=== PATIENT | female | born 1950 | race Caucasian/White ===

== ENCOUNTER 2017-10-12 07:04 | Inpatient (IN) ==
[2017-10-07 13:15] LABS: Basophils # (Auto) 0 K/mcL (0.0-0.3); Basophils % (Auto) 0.4 % (0.0-2.0); Eosinophils # (Auto) 0.2 K/mcL (0.0-0.7); Eosinophils % (Auto) 2.3 % (0.0-7.0); Granulocytes % (Auto) 57.3 % (38.0-78.0); Lymphocytes # (Auto) 2.4 K/mcL (1.5-4.8); Lymphocytes % (Auto) 33.6 % (15.5-49.0); Mean Cell Volume 95.6 fL (80.0-100.0); Mean Corpuscular HGB Conc 32.5 g/dL (31.0-36.0); Mean Corpuscular Hemoglobin 31.1 pg (26.0-34.0); Monocytes # (Auto) 0.5 K/mcL (0.1-0.9); Monocytes % (Auto) 6.4 % (1.0-12.0); Platelet Count 285 K/mcL (140-440); RBC 4.64 M/mcL (4.00-5.20); Red Cell Distribution Width 14.5 % (11.5-14.5)
[2017-10-07 13:31] LABS: Blood Urea Nitrogen 19 mg/dl (8-23)
[~2017-10-12 07:04] MED LIST: ceFAZolin 1 GM VIAL IV SCH
[2017-10-12] MEDS ORDERED: IPRATROPIUM/ALBUTEROL 3 ML AMPUL.NEB NEB ONE ×2 (08:39→10:47)
[2017-10-12] MEDS ORDERED: ONDANSETRON 4 MG/2 ML VIAL IV ONE (09:02)
[2017-10-12] MEDS ORDERED: KETAMINE 100 MG/ML ML IV ONE (09:02)
[2017-10-12] MEDS ORDERED: LIDOCAINE HCL/PF 100 MG/5 ML SYRINGE IV ONE (09:02)
[2017-10-12] MEDS ORDERED: GLYCOPYRROLATE 0.2 MG/ML VIAL IV ONE (09:02)
[2017-10-12] MEDS ORDERED: DEXAMETHASONE 10 MG/ML VIAL IV ONE (09:02)
[2017-10-12] MEDS ORDERED: MIDAZOLAM 2 MG/2 ML VIAL IV ONE (09:02)
[2017-10-12] MEDS ORDERED: PHENYLEPHRINE 10 MG/ML VIAL IV ONE (09:02)
[2017-10-12] MEDS ORDERED: TRANEXAMIC ACID 1,000 MG/10 ML VIAL IV ONE (09:02)
[2017-10-12] MEDS ORDERED: SUCCINYLCHOLINE 20 MG/ML ML IV ONE (09:02)
[2017-10-12] MEDS ORDERED: PROPOFOL 200 MG/20 ML VIAL IV ONE (09:02)
[2017-10-12] MEDS ORDERED: HYDROmorphone 2 MG/ML VIAL IV ONE (09:02)
[2017-10-12] MEDS ORDERED: ROPIVACAINE HCL/PF 20 ML VIAL IJ ONE (09:02)
[2017-10-12] MEDS ORDERED: METHOCARBAMOL 1,000 MG/10 ML VIAL IV PRN (09:43)
[2017-10-12] MEDS ORDERED: ONDANSETRON 4 MG/2 ML VIAL IV PRN ×2 (09:43→12:35)
[2017-10-12] MEDS ORDERED: LACTATED RINGERS 250 ML IV PRN (09:43)
[2017-10-12] MEDS ORDERED: fentaNYL 100 MCG/2 ML VIAL IV PRN (09:43)
[2017-10-12] MEDS ORDERED: ACETAMINOPHEN 900 MG/90 ML BOTTLE IV ONE (09:43)
[2017-10-12] MEDS ORDERED: NALOXONE HCL 0.4 MG/ML VIAL IV PRN (09:43)
[2017-10-12] MEDS ORDERED: FLUMAZENIL 0.1 MG/ML ML IV PRN (09:43)
[2017-10-12] MEDS ORDERED: IPRATROPIUM/ALBUTEROL 3 ML AMPUL.NEB NEB PRN (09:43)
[2017-10-12] MEDS ORDERED: BENZOCAINE/MENTHOL 1 LOZENGE PO PRN (09:43)
[2017-10-12] MEDS ORDERED: MEPERIDINE 25 MG/ML SYRINGE IV PRN (09:43)
[2017-10-12] MEDS ORDERED: LACTATED RINGERS 1,000 ML IV SCH (09:45)
--- NOTE | 2017-10-12 10:03 | Brief Operative Note ---
Date of procedure: 10/12/17 Pre-op diagnosis: Left shoulder bicep tear and impingment and ac joint djd Post-op diagnosis: same Procedure: left shoulder scope extensive debridement and sad and dce bicep tenodesis Grafts/Implants: Yes Anesthesia: GETA Complications Description: 10/12/17 10:03 none Surgeon: Terry Mccain Miller Apprentice: Richy Olivo Estimated blood loss (cc): 20 Specimens Removed/Pathology: none sent Condition: stable Disposition: PACU
--- NOTE | 2017-10-12 10:33 | Operative Note ---
DATE OF OPERATION: 10/12/2017 PREOPERATIVE DIAGNOSES: Left shoulder impingement, acromioclavicular joint arthrosis and biceps tendinopathy. POSTOPERATIVE DIAGNOSES: Left shoulder impingement, acromioclavicular joint arthrosis and biceps tendinopathy. PROCEDURE: Left shoulder diagnostic arthroscopy with extensive debridement, arthroscopic subacromial decompression, and arthroscopic distal clavicle excision and an open biceps tenodesis. SURGEON: Terry Mccain MD TRACTOR TRAILER MECHANIC: Richy Olivo PA-C ANESTHESIA: General LMA anesthesia. COMPLICATIONS: None. IMPLANTS PLACED: Arthrex Endobutton, biceps tenodesis anchor. DESCRIPTION OF PROCEDURE: The patient was brought to the operating room and put to sleep with general LMA anesthesia. Once asleep, the patient had left shoulder sterilely prepped and draped in the usual sterile fashion. A timeout was performed confirming the operative site. Tranexamic acid and antibiotics were given. The patient then had anterior and posterior portals made. We then inspected all contents of the shoulder which did show some adhesive capsulitis, a labral tear and SLAP lesion. At this point, the rotator cuff was inspected. The subscap, supraspinatus, infraspinatus, and teres minor were all evaluated. This showed to be intact. Inferior glenohumeral ligament and posterior glenohumeral ligament, though there was some general inflammation of the capsule, were intact. After extensive debridement of the labrum and the SLAP lesion we released the biceps tendon with an Acufex upturned biter. Shaver was inserted to remove these loose fragments. I then placed the camera in the subacromial space and outflow laterally. An anterior cannula was then created. With this I did place the scope in the subacromial space, removed the bursal tissue, used the vapor. I then used the bur to remove a small portion of the anterior acromion. Once done, I then exposed the distal clavicle by changing portals. The vapor was inserted and I used the bur to remove 10 mm of distal clavicle, making sure there was no bone in the superior capsule which was performed. The vapor was inserted to control bleeding at the end of the bone. We then cleaned the wound and closed the portals with 4-0 nylon. We then made a 2 inch incision anterior inferiorly. I exposed the deltopectoral interval, placed a Gill retractor and identified the conjoined tendon, which was retracted medially with a blue handled retractor. I identified the bicep tendon, which was harvested and made into an anchovy. We used Arthrex biceps tenodesis anchor. We then drilled a hole into the bone and this anchor was placed after preparing the bone, making it a bleeding surface. We irrigated thoroughly and then tied into place the biceps tendon, removing remnants or excess biceps tendon. We irrigated thoroughly, closed this with 2-0 Vicryl and 3-0 Monocryl. Once done, I then irrigated thoroughly and placed a regular sling and a sterile bandage. The patient tolerated this well. There was no complication. RBH:felicia Job ID: [id number] Doc ID: [id number] Terry Mccain MD
[2017-10-12] MEDS ORDERED: ALBUTEROL SULFATE 2.5 MG/3 ML NEBULIZER NEB PRN (10:49)
[2017-10-12] MEDS ORDERED: FUROSEMIDE 20 MG/2 ML VIAL IV ONE (11:54)
--- NOTE | 2017-10-12 12:15 | XRay Report ---
CLINICAL INFORMATION: Shortness of breath post surgery COMPARISON: None. FINDINGS: Heart size, mediastinum and pulmonary vessels are unremarkable. There is moderate interstitial disease throughout both lungs with more severe involvement of the right mid and lower lung. No effusions. Lung volumes are elevated suggesting air trapping IMPRESSION: Large mixed interstitial/alveolar infiltrate in the right mid/lower lung with moderate interstitial disease throughout both lungs. In the acute setting, consider aspiration, ARDS and infection Interpreted and Authenticated by: Santi Umaña 10/12/17
[2017-10-12] MEDS ORDERED: BISACODYL 10 MG SUPP.RECT PR PRN (12:35)
[2017-10-12] MEDS ORDERED: TRANEXAMIC ACID 1,000 MG/10 ML VIAL IV SCH (12:35)
[2017-10-12] MEDS ORDERED: MAGNESIUM HYDROXIDE 30 ML ORAL.SUSP PO PRN (12:35)
[2017-10-12] MEDS ORDERED: POLYETHYLENE GLYCOL 3350 17 GM PACKET PO PRN (12:35)
[2017-10-12] MEDS ORDERED: FLEETS ADULT ENEMA PR PRN (12:35)
[2017-10-12] MEDS: IPRATROPIUM/ALBUTEROL 3 ML AMPUL.NEB NEB SCH ×3 (14:32→22:44)
[2017-10-12] MEDS ORDERED: ALBUTEROL SULFATE 1 PUFF INHALER INH PRN (15:06)
[2017-10-12] MEDS: ceFAZolin 1 GM VIAL IV SCH (19:05)
[2017-10-12] MEDS: methylPREDNISolone SOD SUCC 125 MG/2 ML VIAL IV SCH ×2 (19:05→19:06)
[2017-10-12] MEDS: 0.9 % SODIUM CHLORIDE 10 ML SYRINGE IV SCH ×2 (19:06→22:47)
[2017-10-12] MEDS: DOCUSATE SODIUM 100 MG CAPSULE PO SCH (20:53)
[2017-10-12] MEDS ORDERED: SENNOSIDES 1 TABLET PO SCH (21:00)
[2017-10-12] MEDS ORDERED: ATORVASTATIN 20 MG TABLET PO SCH (21:00)
[2017-10-12] MEDS ORDERED: ALBUTEROL SULFATE 2.5 MG/3 ML NEBULIZER IH SCH (21:00)
[2017-10-12] MEDS ORDERED: LEVOTHYROXINE 75 MCG TABLET PO SCH (21:00)
[2017-10-12] MEDS: Budesonide/Formoterol Fumarate [Symbicort 160-4.5 MCG] Inhaler INH SCH (22:47)
[2017-10-12] MEDS: BENZOCAINE/MENTHOL 1 LOZENGE PO PRN (23:02)
[2017-10-12] MEDS: oxyCODONE/APAP 5/325MG TABLET PO PRN (23:02)
[2017-10-13] MEDS: methylPREDNISolone SOD SUCC 125 MG/2 ML VIAL IV SCH (00:29)
[2017-10-13] MEDS: ceFAZolin 1 GM VIAL IV SCH (00:29)
[2017-10-13] MEDS: oxyCODONE/APAP 5/325MG TABLET PO PRN ×4 (02:54→21:52)
[2017-10-13] MEDS: IPRATROPIUM/ALBUTEROL 3 ML AMPUL.NEB NEB SCH ×6 (02:55→22:46)
[2017-10-13] MEDS: BENZOCAINE/MENTHOL 1 LOZENGE PO PRN ×3 (03:19→18:41)
--- NOTE | 2017-10-13 07:41 | Orthopedic Progress Note ---
Subjective Patient information: Note initiated : 10/13/17 at 7:37 am Service Date, if different from initiated Date: [] Patient: Kesha Modi 67 y/o F admitted on for Arthroscopy Shoulder with Debridement, Take Down . Chief Complaint: [Pt is stable this morning on post operative day 1 without any significant concerns or complaints per the patient however pt was transfered to PCU due to respiratory issues. She is currently feeling good but RN reports poor o2 sats. Patients vital signs have remained stable otherwise. Patients dressing is dry and is grossly instact from a neurovascular and motor standpoint. Patients 10 point ROS is otherwise negative. ] Objective Vital signs: Vital Signs Temp Pulse Pulse Pulse Resp BP BP 10/13/17 06:06 84 16 10/13/17 06:03 85 20 93/54 10/13/17 06:01 87 16 10/13/17 05:32 84 16 10/13/17 05:03 92 H 21 108/53 10/13/17 05:01 86 20 96/81 10/13/17 04:45 88 18 10/13/17 04:11 89 17 100/48 10/13/17 04:01 98.7 F 89 23 H 93/55 10/13/17 03:11 87 14 10/13/17 03:08 86 16 110/61 10/13/17 02:35 83 18 10/13/17 02:01 86 17 106/61 10/13/17 01:01 88 14 106/56 10/13/17 00:08 91 H 22 10/13/17 00:01 98.8 F 88 19 106/54 10/12/17 23:06 91 H 19 110/61 10/12/17 22:52 86 16 10/12/17 22:08 87 22 116/73 10/12/17 20:16 88 13 114/66 10/12/17 20:01 96 H 17 119/97 10/12/17 19:46 85 12 117/104 10/12/17 19:31 109 H 19 114/88 10/12/17 19:16 88 17 111/59 10/12/17 19:01 91 H 16 119/65 10/12/17 18:48 88 17 10/12/17 18:46 87 15 133/70 10/12/17 18:41 04/23/18 18:31 86 19 125/66 10/12/17 18:16 81 16 127/62 10/12/17 18:01 86 15 137/74 10/12/17 17:46 91 H 141/86 10/12/17 17:31 73 14 128/73 10/12/17 17:17 75 11 L 141/71 10/12/17 17:01 93 H 25 H 83/72 10/12/17 16:46 74 13 96/57 10/12/17 16:40 74 14 10/12/17 16:36 70 10/12/17 16:31 73 13 92/58 10/12/17 16:16 77 13 96/57 10/12/17 16:01 80 13 103/65 10/12/17 15:46 80 14 102/61 10/12/17 15:31 84 18 114/69 10/12/17 15:16 85 18 98/67 10/12/17 15:01 87 14 103/67 10/12/17 14:46 88 15 106/67 10/12/17 14:41 91 H 18 10/12/17 14:31 87 15 109/67 10/12/17 14:16 89 16 111/70 10/12/17 14:01 88 16 112/77 10/12/17 13:46 87 14 117/71 10/12/17 13:40 91 H 16 10/12/17 13:35 93 H 18 118/65 10/12/17 13:10 86 22 128/71 10/12/17 12:46 90 18 10/12/17 12:40 10/12/17 12:35 97.8 F 89 24 H 133/77 10/12/17 12:10 97.6 F 103 H 22 168/98 10/12/17 11:59 97.5 F 100 H 20 163/94 10/12/17 11:41 97.5 F 100 H 20 157/117 10/12/17 11:34 97.9 F 99 H 25 H 141/123 10/12/17 11:15 97.9 F 99 H 20 166/84 10/12/17 11:00 99 H 14 162/83 10/12/17 10:45 89 14 135/81 10/12/17 10:30 91 H 14 118/65 04/23/18 10:17 97.9 F 90 10 L 113/60 Pulse Ox 10/13/17 06:06 93 10/13/17 06:03 94 10/13/17 06:01 94 10/13/17 05:32 93 10/13/17 05:03 92 10/13/17 05:01 92 10/13/17 04:45 91 10/13/17 04:11 91 10/13/17 04:01 91 10/13/17 03:11 96 10/13/17 03:08 98 10/13/17 02:35 94 10/13/17 02:01 94 10/13/17 01:01 95 10/13/17 00:08 92 10/13/17 00:01 93 10/12/17 23:06 93 10/12/17 22:52 10/12/17 22:08 94 10/12/17 20:16 94 10/12/17 20:01 94 10/12/17 19:46 97 10/12/17 19:31 95 10/12/17 19:16 93 10/12/17 19:01 95 10/12/17 18:48 10/12/17 18:46 97 10/12/17 18:41 98 10/12/17 18:31 99 10/12/17 18:16 98 10/12/17 18:01 98 10/12/17 17:46 97 10/12/17 17:31 98 10/12/17 17:17 100 10/12/17 17:01 95 10/12/17 16:46 94 10/12/17 16:40 94 10/12/17 16:36 10/12/17 16:31 93 10/12/17 16:16 93 10/12/17 16:01 94 10/12/17 15:46 94 10/12/17 15:31 96 10/12/17 15:16 96 10/12/17 15:01 94 10/12/17 14:46 95 10/12/17 14:41 10/12/17 14:31 96 10/12/17 14:16 94 10/12/17 14:01 95 10/12/17 13:46 94 10/12/17 13:40 94 10/12/17 13:35 93 10/12/17 13:10 90 10/12/17 12:46 90 10/12/17 12:40 82 L 10/12/17 12:35 82 L 10/12/17 12:10 86 L 10/12/17 11:59 86 L 10/12/17 11:41 89 L 10/12/17 11:34 92 10/12/17 11:15 88 L 10/12/17 11:00 88 L 10/12/17 10:45 89 L 10/12/17 10:30 92 10/12/17 10:17 95 Intake and Output 10/12/17 10/13/17 10/13/17 21:59 05:59 13:59 Intake Total 360 / 360 320 / 320 Output Total 600 / 600 925 / 925 Balance -240 / -240 -605 / -605 Intake: Oral 360 / 360 GI Tube Flush 320 / 320 Output: Void Amount 600 / 600 925 / 925 Other: Meal Dinner Percent of Meal Consumed 100% Feeding Ability Assist with Tray Set Up # Voids 1 Intake & Output: Intake & Output 10/12/17 10/13/17 10/13/17 21:59 05:59 13:59 Intake Total 360 / 360 320 / 320 Output Total 600 / 600 925 / 925 Balance -240 / -240 -605 / -605 Intake: Oral 360 / 360 GI Tube Flush 320 / 320 Output: Void Amount 600 / 600 925 / 925 Other: Meal Dinner Percent of Meal Consumed 100% Feeding Ability Assist with Tray Set Up # Voids 1 Incision: Yes healing Incision clean and dry: Yes Dressing: Yes clean Weight bearing status: partial Neurological exam IM: Yes motor sensory intact, Yes neurovascular intact Extremities exam IM: Yes neurovascular intact - Labs CBC & BMP: 10/13/17 03:50 10/07/17 09:54 Labs: Orthopedic Labs 10/07/17 09:54 PT 11.9 INR 0.9 APTT 27 10/13/17 10/07/17 03:50 09:54 Hgb 12.6 14.4 Hct 38.2 44.3 Assessment and Plan (1) History of arthroscopy of shoulder Status: Acute
[2017-10-13] MEDS ORDERED: predniSONE 20 MG TABLET PO SCH (08:00)
[2017-10-13] MEDS ORDERED: metFORMIN 500 MG TABLET PO SCH (09:00)
--- NOTE | 2017-10-13 09:27 | Internal Medicine Consult Note ---
Medical - CN: [facility] - Data of Consult Consult date: 10/13/17 Requesting Physician: Terry Mccain Primary Care Provider: Abelino Toledo - Consult Narrative Reason for consult: postoperative hypoxia History of present illness: Ms. Modi is a 67 year old F who underwent elective left shoulder surgery performed by orthopedics Dr. Dang. patient carries a history of COPD on 2 L home oxygen at night. Postoperatively patient was found wheezing and hypoxic. Patient was transiently Placed on BiPAP and was managed by anesthesia during the postoperative recovery. It was presumed that hypoxia was related to anesthesia induced hypoventilation/ secondary to phrenic nerve block. However after overnight watch an extended recovery patient continued to remain hypoxic requiring 4 L oxygen. Chest imaging revealed bilateral infiltrates suggestive of aspiration pneumonia. Subsequently hospitalist service was consulted At the time of evaluation patient is alert and oriented. She is slightly labored and wheezy.She is able to answer most questions anemia. Sentences. She feels quite better. She however denies a prior episodes of hospitalization but endorses to recent episode of pneumonia for which she was recovering. She quit smoking 3 months ago. She denies fever chills chest pain abdominal pain diarrhea dysuria or weight loss bloody stool. review of systems 10 point review systems was performed and is negative except for what is discussed above CC: Terry Mccain Medical - CN: [facility] Medical history: COPD on home oxygen Hyperlipidemia hypothyroidism Social history: quit smoking 3 months ago Have you smoked in the last 12 months: Yes Drug use: none Alcohol use: none Medical - CN: Meds Home Medications Medication Instructions Recorded Confirmed Type Albuterol Sulfate [Proair Hfa] 2 puff IN Q4-6HP PRN 10/07/17 10/12/17 History Apixaban [Eliquis] 2.5 mg PO BID 10/07/17 10/13/17 History Atorvastatin [Lipitor] 10 mg PO HS 10/07/17 10/12/17 History Budesonide/Formoterol Fumarate 2 puff IH BID 10/07/17 10/12/17 History [Symbicort 160-4.5 Mcg Inhaler] Levothyroxine [Synthroid] 75 mcg PO HS 10/07/17 10/12/17 History metFORMIN [Glucophage] 500 mg PO BID 10/07/17 10/13/17 History Ipratropium/Albuterol [Duoneb] 3 ml NEB Q4-6HP PRN 10/12/17 10/12/17 History Allergies Allergy/AdvReac Type Severity Reaction Status Date / Time No Known Drug Allergies Allergy Unverified 10/07/17 09:28 Medical - CN: Exam - Constitutional Vitals: Temp Pulse Resp BP Pulse Ox 99.3 F H 90 20 123/56 94 10/13/17 07:01 10/13/17 07:53 10/13/17 07:53 10/13/17 07:01 10/13/17 07:53 General appearance: no acute distress Exam: Labored and anxious Pupils symmetric oral cavity dry No eardischarge head normocephalic neck no lymphadenopathy [id number] Abdomen soft Left shoulder dressing Lower extremity no cyanosis clubbing Skin no suspicious lesion Psych alert cooperative Neuro nonfocal Medical - CN: Result - Labs CBC & Chem 7: 10/14/17 03:35 10/14/17 03:35 Labs: Short CBC 10/13/17 Range/Units 03:50 Hgb 12.6 (12.0-15.0) g/dL Hct 38.2 (36.0-48.0) % Medical - CN: A/P (1) Postoperative hypoxia Status: Acute Assessment and plan: * Postoperative hypoxia- secondary to aspiration. continue supplemental oxygen/ pulmonary toilet. * Aspiration pneumonia-start antibiotic coverage. Await CBC. * COPD exacerbation-continue steroids/bronchodilators. * Left shoulder arthroplasty-postoperative Management per orthopedics * hypothyroidism on thyroxine * hyperlipidemia on statin * DM type II continue metformin * Anticoagulation. patient was on apixiban-will be restarted once approved by surgery plan * Admit as inpatient in light of aspiration pneumonia/hypoxia * antibiotic coverage * Pulmonary toilet * aspiration precautions * pre-existing medical condition management as above * Postoperative management per orthopedics
[2017-10-13] MEDS: DOCUSATE SODIUM 100 MG CAPSULE PO SCH ×2 (09:28→21:53)
[2017-10-13] MEDS ORDERED: PIPERACILLIN SODIUM/TAZOBACTAM 3.375 GM in DEXTROSE 5% IN WATER 50 ML IV SCH (09:30)
[2017-10-13] MEDS: Budesonide/Formoterol Fumarate [Symbicort 160-4.5 MCG] Inhaler INH SCH (09:32)
[2017-10-13 09:41] LABS: Basophils # (Auto) 0 K/mcL (0.0-0.3); Basophils % (Auto) 0.1 % (0.0-2.0); Eosinophils # (Auto) 0.2 K/mcL (0.0-0.7); Eosinophils % (Auto) 1.8 % (0.0-7.0); Granulocytes % (Auto) 87.5 % (38.0-78.0); Lymphocytes # (Auto) 0.9 K/mcL (1.5-4.8); Lymphocytes % (Auto) 6.4 % (15.5-49.0); Mean Cell Volume 96.2 fL (80.0-100.0); Mean Corpuscular HGB Conc 32.6 g/dL (31.0-36.0); Mean Corpuscular Hemoglobin 31.3 pg (26.0-34.0); Monocytes # (Auto) 0.6 K/mcL (0.1-0.9); Monocytes % (Auto) 4.2 % (1.0-12.0); Platelet Count 251 K/mcL (140-440); RBC 3.82 M/mcL (4.00-5.20); Red Cell Distribution Width 14.2 % (11.5-14.5)
[2017-10-13 09:55] LABS: ALT/SGPT 20 U/l (0-40); Albumin 4.1 gm/dL (3.2-5.2); Albumin/Globulin Ratio 1.8 (1.0-2.3); Alkaline Phosphatase 41 U/L (39-117); Bilirubin,Direct < 0.2 mg/dL (0.0-0.3); Blood Urea Nitrogen 16 mg/dl (8-23); Gamma Glutamyl Transpeptidase 15 U/L (5-36)
[2017-10-13] MEDS ORDERED: APIXABAN 5 MG TABLET PO SCH ×2 (10:00→21:00)
[2017-10-13] MEDS ORDERED: NICOTINE 21 MG PATCH TOPICAL SCH (10:00)
[2017-10-13] MEDS ORDERED: PNEUMOCOCCAL 23-VAL P-SAC VAC 0.5 ML VIAL IM ONE (10:00)
[2017-10-13] MEDS: 0.9 % SODIUM CHLORIDE 10 ML SYRINGE IV SCH ×3 (10:07→21:53)
--- NOTE | 2017-10-13 10:40 | XRay Report ---
CLINICAL INFORMATION: Hypoxia COMPARISON: 10/12/2017 FINDINGS: Heart size, mediastinum and pulmonary vessels are unremarkable. Interstitial infiltrates, previously seen throughout both lungs, show marked improvement compared to yesterday's study. There is mild residual interstitial disease in the lower lungs. Minor atelectasis has developed in the bases. No effusions IMPRESSION: Marked improvement in diffuse interstitial infiltrates with mild residual in the lower lungs. Minor bibasilar atelectasis Interpreted and Authenticated by: Santi Umaña 10/13/17
[2017-10-13] MEDS ORDERED: POLYETHYLENE GLYCOL 3350 17 GM PACKET PO PRN (13:30)
[2017-10-13] MEDS ORDERED: ONDANSETRON 4 MG/2 ML VIAL IV PRN (13:30)
[2017-10-13] MEDS ORDERED: BISACODYL 10 MG SUPP.RECT PR PRN (13:30)
[2017-10-13] MEDS ORDERED: FLEETS ADULT ENEMA PR PRN (13:30)
[2017-10-13] MEDS ORDERED: ALBUTEROL SULFATE 1 PUFF INHALER INH PRN (13:30)
[2017-10-13] MEDS ORDERED: MAGNESIUM HYDROXIDE 30 ML ORAL.SUSP PO PRN (13:30)
[2017-10-13] MEDS: PIPERACILLIN SODIUM/TAZOBACTAM 3.375 GM in DEXTROSE 5% IN WATER 50 ML IV SCH ×3 (15:01→23:47)
[2017-10-13] MEDS: LEVOTHYROXINE 75 MCG TABLET PO SCH (21:52)
[2017-10-13] MEDS: APIXABAN 5 MG TABLET PO SCH (21:52)
[2017-10-13] MEDS: SENNOSIDES 1 TABLET PO SCH (21:53)
[2017-10-13] MEDS: ATORVASTATIN 20 MG TABLET PO SCH (21:53)
[2017-10-13] MEDS: PATIENTS OWN MEDICATION 1 DOSE MISCELL INH SCH (21:55)
[2017-10-14] MEDS: IPRATROPIUM/ALBUTEROL 3 ML AMPUL.NEB NEB SCH ×6 (03:39→23:34)
[2017-10-14] MEDS: oxyCODONE/APAP 5/325MG TABLET PO PRN ×4 (03:39→19:38)
[2017-10-14] MEDS: BENZOCAINE/MENTHOL 1 LOZENGE PO PRN ×2 (04:01→08:02)
[2017-10-14] MEDS: 0.9 % SODIUM CHLORIDE 10 ML SYRINGE IV SCH ×3 (05:18→21:20)
[2017-10-14] MEDS: PIPERACILLIN SODIUM/TAZOBACTAM 3.375 GM in DEXTROSE 5% IN WATER 50 ML IV SCH ×4 (05:18→23:41)
[2017-10-14 05:19] LABS: Basophils # (Auto) 0 K/mcL (0.0-0.3); Basophils % (Auto) 0.2 % (0.0-2.0); Eosinophils # (Auto) 0.3 K/mcL (0.0-0.7); Eosinophils % (Auto) 2.4 % (0.0-7.0); Granulocytes % (Auto) 78.7 % (38.0-78.0); Lymphocytes # (Auto) 1.8 K/mcL (1.5-4.8); Lymphocytes % (Auto) 12.9 % (15.5-49.0); Mean Cell Volume 96.6 fL (80.0-100.0); Mean Corpuscular HGB Conc 32.7 g/dL (31.0-36.0); Mean Corpuscular Hemoglobin 31.6 pg (26.0-34.0); Monocytes # (Auto) 0.8 K/mcL (0.1-0.9); Monocytes % (Auto) 5.8 % (1.0-12.0); Platelet Count 228 K/mcL (140-440); RBC 3.81 M/mcL (4.00-5.20); Red Cell Distribution Width 14.7 % (11.5-14.5)
[2017-10-14 05:40] LABS: ALT/SGPT 19 U/l (0-40); Albumin 3.8 gm/dL (3.2-5.2); Albumin/Globulin Ratio 1.5 (1.0-2.3); Alkaline Phosphatase 41 U/L (39-117); Bilirubin,Direct < 0.2 mg/dL (0.0-0.3); Blood Urea Nitrogen 22 mg/dl (8-23); Gamma Glutamyl Transpeptidase 16 U/L (5-36); Uric Acid 1.6 mg/dL (2.5-8.0)
[2017-10-14] MEDS: predniSONE 20 MG TABLET PO SCH (08:47)
[2017-10-14] MEDS: APIXABAN 5 MG TABLET PO SCH ×2 (09:34→21:19)
[2017-10-14] MEDS: DOCUSATE SODIUM 100 MG CAPSULE PO SCH ×2 (09:35→21:19)
[2017-10-14] MEDS: metFORMIN 500 MG TABLET PO SCH (09:35)
[2017-10-14] MEDS: NICOTINE 21 MG PATCH TOPICAL SCH (09:35)
[2017-10-14] MEDS: PATIENTS OWN MEDICATION 1 DOSE MISCELL INH SCH ×2 (09:47→21:20)
--- NOTE | 2017-10-14 12:55 | Cat Scan Report ---
CLINICAL INFORMATION: Hypoxia COMPARISON: None TECHNIQUE: 0.625 mm axial slices were obtained from the lung apices through the bases without intravenous contrast. 2.5 mm Sagittal, coronal and axial reformatted images were processed and reviewed at bone, lung and soft tissue windows. 7 mm axial MIP images were also reconstructed to optimize pulmonary nodule detection.The exam was performed using radiation dose optimization techniques including, but not limited to, automated exposure control, adjustment of the mA and/or kV according to patient size and use of iterative reconstruction technique. FINDINGS: Pulmonary parenchymal windows show moderate centrilobular emphysema changes featuring elevated lung volumes, wall thickening and dilatation of all of the airways (chronic bronchitis) and multiple bullae - predominantly upper lobes and scattered throughout the periphery of both lower lobes. There is cicitration atelectasis in the inferior lingular segment. There is mild patchy groundglass airspace disease the peripheral right upper lobe and also moderate vague tree-in-bud airspace disease in the peripheral right middle and lower lobes. In addition, there is linear fibrosis and/or atelectasis in the inferior right lower lobe. No effusions. The mediastinal windows show the noncontrasted pulmonary arteries and thoracic aorta are normal in contour and caliber. The heart is normal in size. There is no adenopathy in the mediastinal, hilar or axillary regions Esophagus is normal. The thyroid is normal. Bone windows show no osseous abnormality is stable IMPRESSION: 1. Mild tree-in-bud airspace disease in the peripheral right lower lobe and minimal groundglass airspace disease in the peripheral right upper and middle lobes. On plain film two days prior there were larger alveolar infiltrates within the right mid and lower lung, but these have largely cleared. The unilateral tree-in-bud pattern typically indicates infection which is now resolving. A component of respiratory bronchiolitis - a noninfectious inflammatory condition confined smokers is also possible. 2. Moderate centrilobular emphysema Interpreted and Authenticated by: Santi Umaña 10/14/17
[2017-10-14] MEDS ORDERED: PNEUMOCOCCAL 23-VAL P-SAC VAC 0.5 ML VIAL IM ONE (13:00)
--- NOTE | 2017-10-14 16:06 | Internal Med Progress Note ---
Medical - PN: Subj Patient information: Note initiated : 10/14/17 at 4:05 pm Service Date, if different from initiated Date: [] Patient: Kesha Modi a 67 y/o F admitted on 10/13/17 for Arthroscopy Shoulder with Debridement, Take Down . Chief Complaint: [] Interval history: Ms. Modi is a 67 year old F who underwent elective left shoulder surgery performed by orthopedics Dr. Dang. patient carries a history of COPD on 2 L home oxygen at night. Postoperatively patient was found wheezing and hypoxic. Patient was transiently put on BiPAP and was managed by anesthesia. It was presumed that hypoxia was related to anesthesia induced hypoventilation/ secondary to phrenic nerve block. however after overnight watch patient continued to be hypoxic requiring 4 L oxygen. Chest imaging revealed bilateral infiltrates suggestive of aspiration pneumonia . Subsequently hospitalist service was consulted At the time of evaluation patient is alert and oriented. She is slightly labored and wheezy.She is able to answer most questions. She feels quite better. She however denies a prior episodes of pneumonia hospitalization. She quit smoking 3 months ago. She denies fever chills chest pain abdominal pain diarrhea dysuria or weight loss bloody stool. OCTOBER 14- patient seen in room. persistent hypoxia/purulent sputum. Frequent cough and shortness of breath. Notable wheezing. On steroids bronchodilators and antibiotics. CT chest reveals centrilobular emphysema along with bronchiolitis and multi lobar groundglass infiltrates. Continue antibiotic coverage. - Constitutional Vitals: Vital Signs Temp Pulse Resp BP Pulse Ox 98.5 F 105 H 20 162/81 90 10/14/17 12:00 10/14/17 15:36 10/14/17 15:36 10/14/17 12:00 10/14/17 12:00 Period Temp Pulse Resp BP Sys/Burnett Pulse Ox Last 24 Hr 98.0 F-99.1 F 88-115 16-24 155-172/80-96 90-98 Intake and Output 10/14/17 10/14/17 10/14/17 05:59 13:59 21:59 Intake Total 550 / 550 470 / 470 Output Total 575 / 575 500 / 500 Balance -25 / -25 -30 / -30 Intake & Output: Intake & Output 10/14/17 10/14/17 10/14/17 05:59 13:59 21:59 Intake Total 550 / 550 470 / 470 Output Total 575 / 575 500 / 500 Balance -25 / -25 - / -30 Intake: IV 190 / 190 50 / 50 Zosyn 3.375 gm In Dextrose 5% 100 / 100 50 / 50 in Water 50 ml @ 100 mls/hr IV Q6H [facility] Rx#:[id number] Oral 360 / 360 420 / 420 Output: Void Amount 575 / 575 500 / 500 Other: Meal Lunch Percent of Meal Consumed 75% Feeding Ability Assist with Tray Set Up # Voids 1 # Bowel Movements 1 General appearance: moderate distress (short of breath) Exam: anxious and labored breathing Audible wheeze Tachycardic No lymphedema Medical - PN: Obj Da - Labs CBC & Chem 7: 10/14/17 03:35 10/14/17 03:35 Labs: Abnormal Lab Results 10/14/17 10/14/17 10/13/17 03:35 03:35 09:06 WBC 14.3 H RBC 3.81 L RDW 14.7 H Gran % 78.7 H Lymph % (Auto) 12.9 L Gran # 11.3 H Lymph # (Auto) Anion Gap 7.0 L Glucose 121 H 209 H Uric Acid 1.6 L 10/13/17 09:06 WBC 13.5 H RBC 3.82 L RDW Gran % 87.5 H Lymph % (Auto) 6.4 L Gran # 11.8 H Lymph # (Auto) 0.9 L Anion Gap Glucose Uric Acid Meds: Medications Albuterol Sulfate (Ventolin) 1 - 2 puff INH Q4-6HP PRN PRN Reason: Shortness Of Breath Albuterol/Ipratropium (Duoneb) 3 ml NEB Q4HRT [facility] Last Admin: 10/14/17 15:36 Dose: 3 ml Atorvastatin Calcium (Lipitor) 10 mg PO HS [facility] Last Admin: 10/13/17 21:53 Dose: 10 mg Bisacodyl (Dulcolax) 10 mg DC Q2-3DAYS PRN PRN Reason: Constipation Docusate Sodium (Colace) 100 mg PO BID [facility] Last Admin: 10/14/17 09:35 Dose: 100 mg Piperacillin Sod/Tazobactam (Sod 3.375 gm/ Dextrose) 50 mls @ 100 mls/hr IV Q6H [facility] Last Infusion: 10/14/17 12:45 Dose: Infused Levothyroxine Sodium (Synthroid) 75 mcg PO [facility] Last Admin: 10/13/17 21:52 Dose: 75 mcg Magnesium Hydroxide (Milk Of Magnesia) 30 ml PO BIDP PRN PRN Reason: Constipation Metformin HCl (Glucophage) 500 mg PO DAILY [facility] Last Admin: 10/14/17 09:35 Dose: 500 mg Nicotine (Nicoderm) 21 mg TOPICAL DAILY@1000 [facility] Last Admin: 10/14/17 09:35 Dose: 21 mg Ondansetron HCl (Zofran) 4 mg IV Q4HP PRN PRN Reason: Nausea And Vomiting Oxycodone/Acetaminophen (Percocet 5-325 Mg) 0 tab PO Q4HP PRN PRN Reason: PAIN LEVEL 3-6 Last Admin: 10/14/17 13:53 Dose: 2 tab Patient Own Medication () 1 dose INH BID [facility] Last Admin: 10/14/17 09:47 Dose: 1 dose Polyethylene Glycol (Miralax) 17 gm PO DAILYP PRN PRN Reason: Constipation [facility]) [facility] Last Admin: 10/14/17 08:47 Dose: 40 mg Senna (Senokot) 2 tab PO [facility] Last Admin: 10/13/17 21:53 Dose: 2 tab Sodium Biphosphate/Sodium Phosphate (Fleets Adult) 1 dose DC Q3-4DAYS PRN PRN Reason: Constipation Sodium Chloride (Saline Flush) 10 ml IV Q8 [facility] Last Admin: 10/14/17 05:18 Dose: 10 ml Throat Lozenges (Cepacol) 1 lozenge PO PRN PRN PRN Reason: Sore Throat Last Admin: 10/14/17 08:02 Dose: 1 lozenge Medical - PN: A/P - Time Spent With Patient Total time spent is greater than 50% in coordination of care (as documented) at patient's floor/unit and/or counseling patient: 25 - 35 minutes (1) Postoperative hypoxia Status: Acute Assessment and plan: * Aacute COPD exacerbation-secondary to acute bronchiolitis with COPD exacerbation. Continue steroids and bronchodilators. ccontinue supplemental oxygen * Aspiration pneumonia multifocal on CT- continue antibiotic coverage. * Sepsis secondary to above-white count uptrending 14.3. Persistent tachycardia /tachypnea * history of A. fib currently in sinus * Left shoulder arthroplasty-postoperative Management per orthopedics * hypothyroidism on thyroxine * hyperlipidemia on statin * DM type II continue metformin * Anticoagulation. on apixiban plan * continue supplement oxygen * antibiotic coverage * Pulmonary toilet/bronchodilators and steroids * aspiration precautions * pre-existing medical condition management as above * possible discharge in 24 hours if clinically improved Current Visit: Yes Medical - PN: Qual - VTE Deep Vein Thrombosis/Pulmonary Embolism Present on Admission: No
[2017-10-14] MEDS: ATORVASTATIN 20 MG TABLET PO SCH (21:19)
[2017-10-14] MEDS: LEVOTHYROXINE 75 MCG TABLET PO SCH (21:19)
[2017-10-14] MEDS: SENNOSIDES 1 TABLET PO SCH (21:20)
[2017-10-15] MEDS: oxyCODONE/APAP 5/325MG TABLET PO PRN ×2 (02:21→23:43)
[2017-10-15] MEDS: IPRATROPIUM/ALBUTEROL 3 ML AMPUL.NEB NEB SCH ×6 (02:24→23:22)
[2017-10-15] MEDS: PIPERACILLIN SODIUM/TAZOBACTAM 3.375 GM in DEXTROSE 5% IN WATER 50 ML IV SCH ×4 (06:11→23:44)
[2017-10-15] MEDS: 0.9 % SODIUM CHLORIDE 10 ML SYRINGE IV SCH ×3 (06:11→21:17)
[2017-10-15] MEDS: predniSONE 20 MG TABLET PO SCH (09:10)
[2017-10-15] MEDS: DOCUSATE SODIUM 100 MG CAPSULE PO SCH ×3 (09:10→21:16)
[2017-10-15] MEDS: PATIENTS OWN MEDICATION 1 DOSE MISCELL INH SCH ×2 (09:11→21:16)
[2017-10-15] MEDS: metFORMIN 500 MG TABLET PO SCH (09:11)
[2017-10-15] MEDS: NICOTINE 21 MG PATCH TOPICAL SCH (09:16)
[2017-10-15] MEDS: APIXABAN 5 MG TABLET PO SCH ×2 (09:16→21:16)
--- NOTE | 2017-10-15 09:48 | Internal Med Progress Note ---
Medical - PN: Subj Patient information: Note initiated : 10/15/17 at 9:42 am Service Date, if different from initiated Date: [] Patient: Kesha Modi a 67 y/o F admitted on 10/13/17 for Arthroscopy Shoulder with Debridement, Take Down . Chief Complaint: [] Interval history: Ms. Modi is a 67 year old F who underwent elective left shoulder surgery performed by orthopedics Dr. Dang. patient carries a history of COPD on 2 L home oxygen at night. Postoperatively patient was found wheezing and hypoxic. Patient was transiently put on BiPAP and was managed by anesthesia. It was presumed that hypoxia was related to anesthesia induced hypoventilation/ secondary to phrenic nerve block. however after overnight watch patient continued to be hypoxic requiring 4 L oxygen. Chest imaging revealed bilateral infiltrates suggestive of aspiration pneumonia . Subsequently hospitalist service was consulted At the time of evaluation patient is alert and oriented. She is slightly labored and wheezy.She is able to answer most questions. She feels quite better. She however denies a prior episodes of pneumonia hospitalization. She quit smoking 3 months ago. She denies fever chills chest pain abdominal pain diarrhea dysuria or weight loss bloody stool. OCTOBER 14- patient seen in room. persistent hypoxia/purulent sputum. Frequent cough and shortness of breath. Notable wheezing. On steroids bronchodilators and antibiotics. CT chest reveals centrilobular emphysema along with bronchiolitis and multi lobar groundglass infiltrates. Continue antibiotic coverage. October 15- patient doing much better. Improved wheezing. On 3 L oxygen. Able to talk in full sentences. Continued bloody purulent expectoration. Transfer to medical floor. Continue antibiotics. Continue bronchodilators and steroids. Possible discharge in 24 hours if continues to improve. - Constitutional Vitals: Vital Signs Temp Pulse Resp BP Pulse Ox 98.3 F 79 22 155/78 93 10/15/17 07:20 10/15/17 08:32 10/15/17 08:32 10/15/17 07:20 10/15/17 08:32 Period Temp Pulse Resp BP Sys/Burnett Pulse Ox Last 24 Hr 97.4 F-98.5 F 70-122 14-24 133-162/78-83 90-98 Intake and Output 10/14/17 10/15/17 10/15/17 21:59 05:59 13:59 Intake Total 610 / 610 790 / 790 290 / 290 Output Total 400 / 400 275 / 275 Balance 210 / 210 790 / 790 Weight 126 lb Intake & Output: Intake & Output 10/14/17 10/15/17 10/15/17 21:59 05:59 13:59 Intake Total 610 / 610 790 / 790 290 / 290 Output Total 400 / 400 275 / 275 Balance 210 / 210 790 / 790 Weight 126 lb Intake: IV 50 / 50 50 / 50 50 / 50 Zosyn 3.375 gm In Dextrose 5% 50 / 50 50 / 50 50 / 50 in Water 50 ml @ 100 mls/hr IV Q6H [facility] Rx#:[id number] Oral 560 / 560 740 / 740 240 / 240 Output: Void Amount 400 / 400 275 / 275 Other: Meal Breakfast Percent of Meal Consumed 100% Feeding Ability Independent # Bowel Movements 1 General appearance: no acute distress Exam: alert oriented Minimal labored breathing minimal rhonchi Tachycardia improving on 3 L oxygen no anxiety Medical - PN: Obj Da - Labs CBC & Chem 7: 10/15/17 03:36 10/14/17 03:35 Labs: Abnormal Lab Results 10/14/17 10/14/17 10/13/17 03:35 03:35 09:06 WBC 14.3 H RBC 3.81 L RDW 14.7 H Gran % 78.7 H Lymph % (Auto) 12.9 L Gran # 11.3 H Lymph # (Auto) Anion Gap 7.0 L Glucose 121 H 209 H Uric Acid 1.6 L 10/13/17 09:06 WBC 13.5 H RBC 3.82 L RDW Gran % 87.5 H Lymph % (Auto) 6.4 L Gran # 11.8 H Lymph # (Auto) 0.9 L Anion Gap Glucose Uric Acid Meds: Medications Albuterol Sulfate (Ventolin) 1 - 2 puff INH Q4-6HP PRN PRN Reason: Shortness Of Breath Albuterol/Ipratropium (Duoneb) 3 ml NEB Q4HRT [facility] Last Admin: 10/15/17 07:00 Dose: 3 ml Atorvastatin Calcium (Lipitor) 10 mg PO HS [facility] Last Admin: 10/14/17 21:19 Dose: 10 mg Bisacodyl (Dulcolax) 10 mg MI Q2-3DAYS PRN PRN Reason: Constipation Docusate Sodium (Colace) 100 mg PO BID [facility] Last Admin: 10/15/17 09:26 Dose: Not Given Piperacillin Sod/Tazobactam (Sod 3.375 gm/ Dextrose) 50 mls @ 100 mls/hr IV Q6H [facility] Last Infusion: 10/15/17 06:50 Dose: Infused Levothyroxine Sodium (Synthroid) 75 mcg PO [facility] Last Admin: 10/14/17 21:19 Dose: 75 mcg Magnesium Hydroxide (Milk Of Magnesia) 30 ml PO BIDP PRN PRN Reason: Constipation Metformin HCl (Glucophage) 500 mg PO DAILY [facility] Last Admin: 10/15/17 09:11 Dose: 500 mg Nicotine (Nicoderm) 21 mg TOPICAL DAILY@1000 [facility] Last Admin: 10/15/17 09:16 Dose: 21 mg Ondansetron HCl (Zofran) 4 mg IV Q4HP PRN PRN Reason: Nausea And Vomiting Oxycodone/Acetaminophen (Percocet 5-325 Mg) 0 tab PO Q4HP PRN PRN Reason: PAIN LEVEL 3-6 Last Admin: 10/15/17 02:21 Dose: 2 tab Patient Own Medication () 1 dose INH BID [facility] Last Admin: 10/15/17 09:11 Dose: 1 dose Polyethylene Glycol (Miralax) 17 gm PO DAILYP PRN PRN Reason: Constipation [facility] Admin: 10/15/17 09:10 Dose: 40 mg Senna (Senokot) 2 tab PO [facility] Last Admin: 10/14/17 21:20 Dose: Not Given Sodium Biphosphate/Sodium Phosphate (Fleets Adult) 1 dose MI Q3-4DAYS PRN PRN Reason: Constipation Sodium Chloride (Saline Flush) 10 ml IV Q8 [facility] Last Admin: 10/15/17 06:11 Dose: 10 ml Throat Lozenges (Cepacol) 1 lozenge PO PRN PRN PRN Reason: Sore Throat Last Admin: 10/14/17 08:02 Dose: 1 lozenge Medical - PN: A/P - Time Spent With Patient Total time spent is greater than 50% in coordination of care (as documented) at patient's floor/unit and/or counseling patient: 15 - 24 minutes (1) Postoperative hypoxia Status: Acute Assessment and plan: * Acute COPD exacerbation-secondary to acute bronchiolits. Clinical improvement noted. Continue steroids and bronchodilator/oxygen * Aspiration pneumonia- clinical improvement noted in antibiotic coverage * Sepsis secondary to above-Clinical improvement noted. * history of paroxysmal A. fib currently in sinus.continue anticoagulation for CVA prophylaxis * Left shoulder arthroplasty-postoperative Management per orthopedics * hypothyroidism on thyroxine * hyperlipidemia on statin * DM type II continue metformin * Anticoagulation- on apixiban plan * transfer to medical floor * Continue pulmonary toilet/bronchodilators and steroids * physical therapy * pre-existing medical condition management as above * charges a.m. Current Visit: Yes Medical - PN: Qual - VTE Deep Vein Thrombosis/Pulmonary Embolism Present on Admission: No
[2017-10-15] MEDS ORDERED: POLYETHYLENE GLYCOL 3350 17 GM PACKET PO PRN (10:25)
[2017-10-15] MEDS ORDERED: BISACODYL 10 MG SUPP.RECT PR PRN (10:25)
[2017-10-15] MEDS ORDERED: BENZOCAINE/MENTHOL 1 LOZENGE PO PRN (10:25)
[2017-10-15] MEDS ORDERED: ALBUTEROL SULFATE 1 PUFF INHALER INH PRN (10:25)
[2017-10-15] MEDS ORDERED: ONDANSETRON 4 MG/2 ML VIAL IV PRN (10:25)
[2017-10-15] MEDS ORDERED: MAGNESIUM HYDROXIDE 30 ML ORAL.SUSP PO PRN (10:25)
[2017-10-15] MEDS ORDERED: FLEETS ADULT ENEMA PR PRN (10:25)
[2017-10-15 10:39] LABS: Mean Cell Volume 97.1 fL (80.0-100.0); Mean Corpuscular HGB Conc 32.3 g/dL (31.0-36.0); Mean Corpuscular Hemoglobin 31.4 pg (26.0-34.0); Platelet Count 259 K/mcL (140-440); RBC 4.13 M/mcL (4.00-5.20); Red Cell Distribution Width 14.1 % (11.5-14.5)
[2017-10-15 11:24] LABS: ALT/SGPT 22 U/l (0-40); Albumin 3.9 gm/dL (3.2-5.2); Albumin/Globulin Ratio 1.3 (1.0-2.3); Alkaline Phosphatase 41 U/L (39-117); Bilirubin,Direct < 0.2 mg/dL (0.0-0.3); Blood Urea Nitrogen 19 mg/dl (8-23); Gamma Glutamyl Transpeptidase 19 U/L (5-36); Uric Acid 1.7 mg/dL (2.5-8.0)
[2017-10-15 11:49] LABS: Eosinophils % (Manual) 5 % (0-7); Lymphocytes % 27 % (15-49); Monocytes % (Manual) 4 % (1-12); Platelet Estimate NORMAL (NORMAL); RBC Morphology NORMAL (NORMAL); Segmented Neutrophils % 64 % (38-78)
--- NOTE | 2017-10-15 17:52 | Discharge Summary ---
Ortho Discharge Plan - General - Patient Instructions Diet: Regular Diet Activity: activity as tolerated, weight bearing as tolerated Dressing Care: May shower in 2 days Patient Education: Acute Respiratory Distress Syndrome (GEN), Shoulder Arthroscopy (DC), Cigarette Smoking and Your Health (GEN), Using Oxygen at Home (GEN) - Follow Up Plan Follow Up Appointments: Terry Mccain MD [Physician] - 10/27/17 2:20 pm Disposition: Hospice - Home Prognosis: Good Rehab Potential: Good I certify that the patient requires SNF services: No Overall status at discharge: patient is progressing back to baseline - Orders For Discharge Additional Discharge Orders: Physical Therapy at Discharge - General Location: Determined By Patient
--- NOTE | 2017-10-15 17:54 | Orthopedic Progress Note ---
Subjective Patient information: Note initiated : 10/15/17 at 5:53 pm Service Date, if different from initiated Date: [] Patient: Kesha Modi 67 y/o F admitted on 10/13/17 for Arthroscopy Shoulder with Debridement, Take Down . Chief Complaint: c/o sob but much better[] Objective Vital signs: Vital Signs Temp Pulse Pulse Resp BP Pulse Ox 10/15/17 16:00 81 10/15/17 15:15 96 10/15/17 15:13 76 16 10/15/17 15:07 97.8 F 81 24 H 149/78 95 10/15/17 12:27 97 10/15/17 12:25 70 16 10/15/17 12:00 98.6 F 108 H 24 H 205/93 95 10/15/17 08:32 79 22 93 10/15/17 08:13 88 10/15/17 08:04 122 H 10/15/17 08:03 70 18 98 10/15/17 07:30 79 22 92 10/15/17 07:20 98.3 F 79 22 155/78 92 10/15/17 07:10 77 18 10/15/17 04:00 98.2 F 76 14 149/78 96 10/15/17 00:00 97.4 F 73 22 146/83 98 10/14/17 23:34 95 H 20 10/14/17 20:00 98.3 F 97 H 22 133/78 95 10/14/17 19:27 94 10/14/17 19:25 82 18 Intake and Output 10/15/17 10/15/17 10/15/17 05:59 13:59 21:59 Intake Total 790 / 790 340 / 340 360 / 360 Output Total 275 / 275 Balance 790 / 790 65 / 65 360 / 360 Intake: IV 50 / 50 100 / 100 Zosyn 3.375 gm In Dextrose 5% 50 / 50 100 / 100 in Water 50 ml @ 100 mls/hr IV Q6H [facility] Rx#:[id number] Oral 740 / 740 240 / 240 360 / 360 Output: Void Amount 275 / 275 Other: Meal Breakfast Percent of Meal Consumed 100% Feeding Ability Independent # Bowel Movements 1 Weight 126 lb Patient Weight 10/16/17 05:59 Weight 126 lb Intake & Output: Intake & Output 04/10/15/17 10/15/17 05:59 13:59 21:59 Intake Total 790 / 790 340 / 340 360 / 360 Output Total 275 / 275 Balance 790 / 790 65 / 65 360 / 360 Weight 126 lb Intake: IV 50 / 50 100 / 100 Zosyn 3.375 gm In Dextrose 5% 50 / 50 100 / 100 in Water 50 ml @ 100 mls/hr IV Q6H [facility] Rx#:[id number] Oral 740 / 740 240 / 240 360 / 360 Output: Void Amount 275 / 275 Other: Meal Breakfast Percent of Meal Consumed 100% Feeding Ability Independent # Bowel Movements 1 Incision: Yes healing Incision clean and dry: Yes Dressing: Yes clean Weight bearing status: partial Neurological exam IM: Yes oriented X3 Extremities exam IM: Yes Foot pink and warm (dc in am), Yes neurovascular intact - Labs CBC & BMP: 10/15/17 09:51 10/15/17 09:51 Labs: Orthopedic Labs 10/07/17 09:54 PT 11.9 INR 0.9 APTT 27 10/15/17 10/15/17 10/14/17 09:51 03:36 03:35 Hgb 13.0 12.2 12.0 Hct 40.1 37.8 36.9 10/14/17 10/13/17 10/13/17 03:35 09:06 03:50 Hgb TNP 12.0 12.6 Hct Not Reportable 36.8 38.2 10/07/17 09:54 Hgb 14.4 Hct 44.3
[2017-10-15] MEDS: guaiFENesin/DEXTROMETHORPHAN ORAL SOL PO PRN (19:45)
[2017-10-15] MEDS ORDERED: ATORVASTATIN 20 MG TABLET PO SCH (21:00)
[2017-10-15] MEDS ORDERED: LEVOTHYROXINE 75 MCG TABLET PO SCH (21:00)
[2017-10-15] MEDS ORDERED: SENNOSIDES 1 TABLET PO SCH (21:00)
[2017-10-16] MEDS: guaiFENesin/DEXTROMETHORPHAN ORAL SOL PO PRN ×2 (01:30→10:29)
[2017-10-16] MEDS: IPRATROPIUM/ALBUTEROL 3 ML AMPUL.NEB NEB SCH ×2 (04:30→07:00)
[2017-10-16] MEDS: 0.9 % SODIUM CHLORIDE 10 ML SYRINGE IV SCH (05:55)
[2017-10-16] MEDS: PIPERACILLIN SODIUM/TAZOBACTAM 3.375 GM in DEXTROSE 5% IN WATER 50 ML IV SCH (05:55)
[2017-10-16] MEDS ORDERED: predniSONE 20 MG TABLET PO SCH (08:00)
--- NOTE | 2017-10-16 08:10 | Discharge Summary ---
Medical - DS: Prov Patient information: Note initiated : 10/16/17 at 8:07 am Service Date, if different from initiated Date: [] Patient: Kesha Modi 67 y/o F admitted on 10/13/17 for Arthroscopy Shoulder with Debridement, Take Down . Chief Complaint: [] Date of admission: 10/13/17 13:00 Discharge date: 10/16/17 Primary care physician: Abelino Toledo Consults: 10/13/17 08:09 Consult to Physician [CONS] Routine Comment: Consulting Provider: Ricky Winn Reason For Exam: Physician to Consult Medical - DS: Meds - Discharge Medications Prescriptions: Amoxicillin/Potassium Clav [Augmentin] 875 mg PO Q12H #10 tab HYDROcodone/APAP 10/325MG [[place] 10-325Mg] 1 - 2 tab PO Q4H PRN #60 tab PRN Reason: Pain predniSONE [Prednisone] 20 mg PO QAMCC #5 tab Active and Home Medications: Home Medications Albuterol Sulfate [Proair Hfa] 2 puff IN Q4-6HP PRN 10/07/17 [History Confirmed 10/12/17 Last Taken 10/12/17] Apixaban [Eliquis] 2.5 mg PO BID 10/07/17 [History Confirmed 10/13/17 Last Taken 10/07/17] Atorvastatin [Lipitor] 10 mg PO HS 10/07/17 [History Confirmed 10/12/17 Last Taken 10/07/17] Budesonide/Formoterol Fumarate [Symbicort 160-4.5 Mcg Inhaler] 2 puff IH BID [History Confirmed 10/12/17 Last Taken 10/07/17] Levothyroxine [Synthroid] 75 mcg PO HS 10/07/17 [History Confirmed 10/12/17 Last Taken 10/07/17] metFORMIN [Glucophage] 500 mg PO BID 10/07/17 [History Confirmed 10/13/17 Last Taken Unknown] Ipratropium/Albuterol [Duoneb] 3 ml NEB Q4-6HP PRN 10/12/17 [History Confirmed 10/12/17 Last Taken Unknown] HYDROcodone/APAP 10/325MG [[place] 10-325Mg] 1 - 2 tab PO Q4H PRN #60 tab [Rx Last Taken Unknown] Amoxicillin/Potassium Clav [Augmentin] 875 mg PO Q12H #10 tab 10/16/17 [Rx Last Taken Unknown] predniSONE [Prednisone] 20 mg PO [facility] #5 tab 10/16/17 [Rx Last Taken Unknown] Medical - DS: Hosp Hospital course: DISCHARGE DIAGNOSIS * COPD exacerbation-secondary to acute bronchiolits. clinically back to baseline. On home oxygen. Continue bronchodilator/oxygen on discharge * Aspiration pneumonia- clinical improvement .current medications 5 days of Augmentin/aspiration precautions * Sepsis secondary to above-Clinical improvement noted. * history of paroxysmal A. fib currently in sinus.continue anticoagulation on apixiban for CVA prophylaxis * Left shoulder arthroplasty-continue follow-up/postoperative care as per orthopedic recommendations * hypothyroidism on thyroxine * hyperlipidemia on statin * DM type II continue metformin [facility] Ms. Modi is a 67 year old F who underwent elective left shoulder surgery performed by orthopedics Dr. Dang. patient carries a history of COPD on 2 L home oxygen at night. Postoperatively patient was found wheezing and hypoxic. Patient was transiently put on BiPAP and was managed by anesthesia. It was presumed that hypoxia was related to anesthesia induced hypoventilation/ secondary to phrenic nerve block. however after overnight watch patient continued to be hypoxic requiring 4 L oxygen. Chest imaging revealed bilateral infiltrates suggestive of aspiration pneumonia . Subsequently hospitalist service was consulted At the time of evaluation patient is alert and oriented. She is slightly labored and wheezy.She is able to answer most questions. She feels quite better. She however denies a prior episodes of pneumonia hospitalization. She quit smoking 3 months ago. She denies fever chills chest pain abdominal pain diarrhea dysuria or weight loss bloody stool. OCTOBER 14- patient seen in room. persistent hypoxia/purulent sputum. Frequent cough and shortness of breath. Notable wheezing. On steroids bronchodilators and antibiotics. CT chest reveals centrilobular emphysema along with bronchiolitis and multi lobar groundglass infiltrates. Continue antibiotic coverage. October 15- patient doing much better. Improved wheezing. On 3 L oxygen. Able to talk in full sentences. Continued bloody purulent expectoration. Transfer to medical floor. Continue antibiotics. Continue bronchodilators and steroids. Possible discharge in 24 hours if continues to improve. October 16-patient doing well. No overnight events. No concerns per staff. No fever chills. Breathing nonlabored. Able to talk in full sentences.white count down to 11.7. Discharging home on oral antibiotics and 5 day prednisone. Continue follow up with primary care physician/orthopedics as scheduled. Discharge diagnosis: . - Time Spent with Patient Total time spent providing and/or coordinating discharge services: Greater than 30 minutes Medical - DS: Exam - Constitutional Vitals: Vital Signs Temp Pulse Pulse Resp BP Pulse Ox 10/16/17 07:00 72 18 95 10/16/17 06:52 18 95 10/16/17 06:50 174/82 10/16/17 06:29 97.8 F 18 174/84 95 10/16/17 04:00 97.8 F 73 16 168/76 95 10/15/17 23:49 97.8 F 86 18 158/90 99 10/15/17 23:22 86 18 100 10/15/17 20:00 98.2 F 90 20 125/71 93 10/15/17 19:27 104 H 22 96 10/15/17 16:00 81 10/15/17 15:15 96 10/15/17 15:13 76 16 10/15/17 15:07 97.8 F 81 24 H 149/78 95 10/15/17 12:27 97 10/15/17 12:25 70 16 10/15/17 12:00 98.6 F 108 H 24 H 205/93 95 10/15/17 08:32 79 22 93 10/15/17 08:13 88 Intake and Output 10/15/17 10/16/17 10/16/17 21:59 05:59 13:59 Intake Total 410 / 410 450 / 450 Output Total 1000 / 1000 300 / 300 150 / 150 Balance -590 / -590 150 / 150 -150 / -150 Intake: IV 50 / 50 50 / 50 Zosyn 3.375 gm In Dextrose 5% 50 / 50 50 / 50 in Water 50 ml @ 100 mls/hr IV Q6H [facility] Rx#:[id number] Oral 360 / 360 400 / 400 Output: Void Amount 300 / 300 150 / 150 Stool 1000 / 1000 Other: Stool Size Large Stool Consistency Loose # Voids 1 # Bowel Movements 3 Weight 138 lb 14.4 oz Medical - DS: Data Labs on day of discharge: Labs from last 24 hours 10/15/17 10/15/17 09:51 09:51 WBC 11.7 H RBC 4.13 Hgb 13.0 Hct 40.1 MCV 97.1 MCH 31.4 MCHC 32.3 RDW 14.1 Plt Count 259 MPV 7.4 Total Counted 100 Seg Neutrophils % 64 Band Neutrophils % Not Reportable Lymphocytes % 27 Monocytes % (Manual) 4 Eosinophils % (Manual) 5 Platelet Estimate Normal RBC Morphology Normal Sodium 141 Potassium 4.0 Chloride 100 Carbon Dioxide 33 H Anion Gap 8.0 BUN 19 Creatinine 0.8 GFR Calculation 77 Glucose 106 H Uric Acid 1.7 L Calcium 9.6 Phosphorus 2.8 Magnesium 2.1 Total Bilirubin 0.9 Direct Bilirubin < 0.2 GGT 19 AST 26 ALT 22 Alkaline Phosphatase 41 Lactate Dehydrogenase 221 Total Protein 6.8 Albumin 3.9 Globulin 2.9 Albumin/Globulin Ratio 1.3 Triglycerides 87 Preliminary micro results at discharge 10/14/17 09:28 Sputum Culture - Preliminary Sputum - Induced Medical - DS: A/P - Patient/Caregiver Discharge Instructions Activity: as per physical therapy Diet: Regular Diet Additional Instructions: Follow-up PCP in 5 days F/u orthopedics as scheduled by orthopedics along with post op care as directed by orthopedics. I recommend Primary care physician to check CBC BMP UA as a posthospital follow- up and Chest x-ray in 1 week. Antibiotics for additional 5 days prednisone for 5 days oxygen @ 3 L Continue aggressive bowel regimen to prevent constipation Continue fall precautions All meals on chair sitting upright at 90 degrees to prevent aspiration Return to ER if worsening fever chills shortness of breath, diarrhea, bleeding Review risk and side effect profile of medications including antibiotics. Side effect may include mild to severe reaction including rash, diarrhea, cdiff and even which can be prevented by close follow-up with PCP and monitoring for side effects Refrain from smoking and alcohol Continue diet and activity as advised Discussed importance of medication adherence Please review medication list with patient prior to discharge Please schedule follow-up with PCP/Providers prior to discharge and provide printouts Portions of this chart may have been created with [employer] voice recognition software. Occasional wrong-word or ?sound-like? substitutions may have occurred due to the inherent limitations of voice recognition software. Please read the chart carefully and recognize, using context, where the substitutions have occurred. CC- PCP Prescriptions: Amoxicillin/Potassium Clav [Augmentin] 875 mg PO Q12H #10 tab HYDROcodone/APAP 10/325MG [[place] 10-325Mg] 1 - 2 tab PO Q4H PRN #60 tab PRN Reason: Pain predniSONE [Prednisone] 20 mg PO QAC #5 tab Other Amb Orders: Physical Therapy at Discharge - General Location: Determined By Patient - Problem Maintenance (1) Postoperative hypoxia Status: Acute - Follow up Plan Follow up with: Terry Mccain MD [Physician] - 10/27/17 2:20 pm Disposition: Hospice - Home Prognosis: Good Rehab Potential: Fair I certify that the patient requires SNF services: No Overall status at discharge: patient is progressing back to baseline Medical - DS: Qual - VTE Deep Vein Thrombosis/Pulmonary Embolism Present on Admission: No
[2017-10-16] MEDS: APIXABAN 5 MG TABLET PO SCH (08:41)
[2017-10-16] MEDS: PATIENTS OWN MEDICATION 1 DOSE MISCELL INH SCH (08:41)
[2017-10-16] MEDS: DOCUSATE SODIUM 100 MG CAPSULE PO SCH (08:41)
[2017-10-16] MEDS ORDERED: metFORMIN 500 MG TABLET PO SCH (09:00)
[2017-10-16] MEDS ORDERED: NICOTINE 21 MG PATCH TOPICAL SCH (10:00)
[2017-10-16] MEDS: oxyCODONE/APAP 5/325MG TABLET PO PRN (10:31)
== END 2017-10-16 12:10 | disposition hospice, home (50) | DRG 500 ==
LOC: SUR 07:04 → ICU 13:20 → MEDSUR 10-15 11:19
PROVIDERS: ADMIT Orthopaedic Surgery; ATTEND Internal Medicine